=== PATIENT | male | born 1980 | race Caucasian/White ===

== ENCOUNTER 2024-10-25 07:45 | Outpatient (CLI) | payer OTHER, SELFPAY | END 2024-10-25 07:46 | disposition home or self-care (01) | LOC: NFLDREF 10-26 23:50 | PROVIDERS: PCP Family Medicine; Referring Provider Family Medicine; Visit Provider Family Medicine | DX: Z13.220 Encounter for screening for lipoid disorders (principal); Z13.1 Encounter for screening for diabetes mellitus | CPT/HCPCS: 80061; 82947 ==

== ENCOUNTER 2025-06-12 08:37 | Outpatient (CLI) | payer OTHER, SELFPAY ==
--- NOTE | 2025-06-12 09:00 | CRLHL7_ITS ---
For Patients: As a result of the Century Cures Act, medical imaging exams and procedure reports are released immediately into your electronic medical record. You may view this report before your referring provider. If you have questions, please contact your health care provider. INDICATION: Sensation of a plugged left ear. TECHNIQUE: High-resolution CT images of the bilateral petrous temporal bones are obtained without contrast. Multiplanar reconstructions. Findings : The external auditory canals are normally patent in the scutum is sharp, bilaterally. Middle ear cavities are clear. The ossicular chain appears normal bilaterally. The mastoid air cells are well developed and clear bilaterally. The cochlea, vestibule and the semicircular canals are unremarkable. The internal auditory canals are normal as visualized. There are several small inflammatory retention cysts within the bilateral maxillary sinuses but no air-fluid levels. IMPRESSION: 1. Negative CT scan of the bilateral petrous temporal bones. Clear middle ear cavities and external auditory canals at this time. 2. Incidental small retention cysts within the maxillary sinuses. Please note that all CT scans at this facility use dose modulation, iterative reconstruction, and/or weight-based dosing when appropriate to reduce radiation dose to as low as reasonably achievable. Dictated by Kj Arvizu MD @ 06/13/2025 7:47:23 AM (Electronically Signed)
--- NOTE | 2025-06-12 10:15 | CRLHL7_ITS ---
For Patients: As a result of the Century Cures Act, medical imaging exams and procedure reports are released immediately into your electronic medical record. You may view this report before your referring provider. If you have questions, please contact your health care provider. Technique: Double-contrast esophagram performed after the uneventful administration of effervescent crystals and thick barium followed by thin barium. Fluoroscopy time 47 seconds. Indication: Dysphagia food gets stuck Comparison: None. Findings: Minimal reflux noted. Small sliding hiatal hernia. Mucosal irregularity in the mid esophagus. No stricture. No ulcer. Motility normal. Impression: Small sliding hiatal hernia. Mucosal irregularity may be present in the mid esophagus. EGD recommended. Dictated by Ruiz Haley MD @ 06/12/2025 9:37:50 AM (Electronically Signed)
== END 2025-06-12 08:38 | disposition home or self-care (01) ==
LOC: CT 08:39
PROVIDERS: PCP Family Medicine; Visit Provider Physician Assistant
DX: R13.10 Dysphagia, unspecified (principal); K44.9 Diaphragmatic hernia without obstruction or gangrene; H93.8X9 Other specified disorders of ear, unspecified ear
CPT/HCPCS: 70480; 74221